=== PATIENT | female | born 1980 | race African-American/Black ===

== ENCOUNTER 2017-07-11 05:13 | Day surgery (SDC) | payer BC ==
[2017-07-08 15:17] VITALS: BMI 24.8
[~2017-07-11 05:13] MED LIST: LIDOCAINE HCL 1%, 10 MG/ML (20ML VIAL) INF ONE
[2017-07-11] MEDS ORDERED: ACETAMINOPHEN INJECTION 100 ML IVPB ONE (07:25)
[2017-07-11] MEDS ORDERED: ceFAZolin SODIUM 1 GM VIAL ONE (07:30)
[2017-07-11] MEDS ORDERED: DEXAMETHASONE SOD PHOSPHATE 4 MG/1 ML VIAL ONE (07:30)
[2017-07-11] MEDS ORDERED: PHENYLEPHRINE HCL 10 MG/1 ML SINGLE DOSE VIAL ONE (07:30)
[2017-07-11] MEDS ORDERED: PROPOFOL 20 ML ONE ×2 (07:31)
[2017-07-11] MEDS ORDERED: SUCCINYLCHOLINE CHLORIDE 200 MG/10 ML VIAL ONE (07:31)
[2017-07-11] MEDS ORDERED: ROCURONIUM BROMIDE 50 MG/5 ML VIAL ONE (07:31)
[2017-07-11] MEDS ORDERED: ePHEDrine SULFATE 50 MG/1 ML AMPULE ONE (07:31)
[2017-07-11] MEDS ORDERED: MIDAZOLAM HCL 2 MG/2 ML SINGLE DOSE VIAL ONE (07:31)
[2017-07-11] MEDS ORDERED: LIDOCAINE HCL/PF 2% SDV 5ML VIAL ONE (07:33)
[2017-07-11] MEDS ORDERED: DESFLURANE GAS 240 ML BOTTLE IH ONE (07:58)
[2017-07-11] MEDS ORDERED: ACETAMINOPHEN 325 MG TABLET (FP) PO PRN (08:11)
[2017-07-11] MEDS ORDERED: IBUPROFEN 800 MG/8 ML IJ IVPB PRN (08:11)
[2017-07-11] MEDS ORDERED: IBUPROFEN 600 MG TABLET (FP) PO PRN (08:11)
--- NOTE | 2017-07-11 08:14 | HP ---
Admitting History and Physical - Admission History of Present Illness: 36 yo for permanent sterilization procedure She rejects all forms of non-permanent contraception Limitations to Obtaining History: No Limitations - Past Medical History Cardiovascular: No: HTN Gastrointestinal: No: GERD ...LMP: 06/24/17 ...: No ...: 6 ...Para: 4 Heme/Onc: No: Anemia Endocrine: Yes: Hyperthyroidism (s/p ablation) - Past Surgical History Additional Past Surgical History: D&C - Smoking History Smoking history: Never smoked Have you smoked in the past 12 months: No - Alcohol/Substance Use Hx Alcohol Use: No History of Substance Use: reports: None - Social History ADL: Independent History of Recent Travel: No Home Medications - Allergies Allergies/Adverse Reactions: Allergies Allergy/AdvReac Type Severity Reaction Status Date / Time No Known Allergies Allergy Verified 07/11/17 06:42 - Home Medications Home Medications: Ambulatory Orders Multivitamins [Tab-A-Vit -] 1 tab PO DAILY 07/08/17 Ibuprofen [Advil -] 200 mg PO PRN PRN 07/11/17 Family Disease History - Family Disease History Family History: Denies Review of Systems - Review of Systems Constitutional: reports: No Symptoms HENT: reports: No Symptoms Neck: reports: No Symptoms Cardiovascular: reports: No Symptoms Respiratory: reports: No Symptoms Gastrointestinal: reports: No Symptoms Genitourinary: reports: No Symptoms Musculoskeletal: reports: No Symptoms Integumentary: reports: No Symptoms Neurological: reports: No Symptoms Endocrine: reports: No Symptoms Psychiatric: reports: No Symptoms Physical Examination Vital Signs: Vital Signs Temperature 98.7 F 07/11/17 06:40 Pulse Rate 62 07/11/17 06:40 Respiratory Rate 20 07/11/17 06:40 Blood Pressure 129/84 07/11/17 06:40 O2 Sat by Pulse Oximetry (%) 100 07/11/17 06:39 Constitutional: Yes: Well Nourished, No Distress, Calm Cardiovascular: Yes: Regular Rate and Rhythm Respiratory: Yes: Regular, CTA Bilaterally Gastrointestinal: Yes: Normal Bowel Sounds, Soft Edema: No Neurological: Yes: Alert, Oriented Psychiatric: Yes: Alert, Oriented Assessment/Plan 36 yo for laparoscopic sterilization procedure, bilateral salpingectomy Reviewed risks of procedure including infection, bleeding, damage to surrounding organs such as bowel and bladder and their associated repair. Discussed tubal ligation vs removal of tubes, patient desires complete removal for risk reduction of cancer. She expressed understanding. 1. 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 SCDs for DVT prophylaxis 3. Will proceed to OR
[2017-07-11] MEDS ORDERED: LACTATED RINGERS SOLUTION 1,000 ML IV SCH ×2 (08:15→10:45)
[2017-07-11] MEDS ORDERED: ceFAZolin SODIUM 1 GM VIAL IVPB ONE (09:01)
[2017-07-11] MEDS ORDERED: GLYCOPYRROLATE 0.2 MG/1 ML VIAL ONE (09:29)
[2017-07-11] MEDS ORDERED: NEOSTIGMINE METHYLSULFATE 0.5 MG/ML - 10 ML MDV ONE (09:29)
[2017-07-11] MEDS ORDERED: LIDOCAINE HCL 1%, 10 MG/ML (20ML VIAL) INF ONE ×2 (09:42)
--- NOTE | 2017-07-11 09:47 | OP ---
Operative Note - Note: Operative Date: 07/11/17 Pre-Operative Diagnosis: sterilization Operation: laparoscopic left salpingectomy Findings: normal appearing ovaries bilaterally, normal uterus, absent right fallopian tube Post-Operative Diagnosis: Same as Pre-op Surgeon: Nishi Levine Utility Driver: Blu Bradley Anesthesiologist/PAGE MAKEUP SYSTEM OPERATOR: Kehinde Campbell Anesthesia: General Specimens Removed: left fallopian tube Estimated Blood Loss (mls): 2 Drains, Volume Out (mls): 400 (urine ) Fluid Volume Replaced (mls): 1,000 Operative Report Dictated: Yes
--- NOTE | 2017-07-11 10:21 | OP ---
DATE OF OPERATION: 07/11/2017 ATTENDING PHYSICIAN: Nishi Levine MD PREOPERATIVE DIAGNOSIS: Desires permanent sterilization and removal of fallopian tube. POSTOPERATIVE DIAGNOSIS: Desires permanent sterilization and removal of fallopian tube. PROCEDURE PERFORMED: Laparoscopic left salpingectomy. METEOROLOGY FACULTY MEMBER: Blu Bradley MD ANESTHESIA: General anesthesia by Kehinde Campbell MD INDICATIONS: The patient is a 36-year-old 6 para 4 desiring permanent sterilization and removal of her left fallopian tube. She was counseled about risks, benefits and alternatives as well as complications of the procedure, including infection, bleeding, damage to surrounding organs such as bowel, bladder and uterus. She expressed understanding. PROCEDURE IN DETAIL: She was brought to the operating room. When anesthesia was found to be adequate the patient was prepped and draped in the usual sterile fashion. She was placed in the dorsal lithotomy position using Roberta stirrups. A weighted speculum was placed into the patient's vagina and anterior lip of the cervix was grasped using a an Allis clamp. The HUMI uterine manipulator was placed in the uterus. A Vogt catheter was placed in the patient bladder. Clear fluid was noted. Attention was brought to the patient's abdomen. A 5-mm incision was made in the umbilicus and a Veress needle was used to confirm intraabdominal placement using the water drop test. The abdomen was insufflated to an operating pressure of 16 mmHg of carbon dioxide. The 5-mm trocar was placed under direct visualization. Examination of the abdominal cavity revealed an absent right fallopian tube. A left lower quadrant and right lower quadrant 5-mm trocar was placed under direct visualization. The left fallopian tube was identified and followed to its fimbriated end. It was ligated easily using a Harmonic scalpel. Good hemostasis was noted. It was removed from the abdominal cavity and sent to Pathology. Examination of the abdominal cavity revealed no ovarian cyst. Good hemostasis was noted. All instruments were removed from the patient's abdomen. The pneumoperitoneum was released. The trocars were removed under direct visualization. Incisions were closed using 3-0 Vicryl and sealed with Dermabond. The patient was awoken from anesthesia and brought to the recovery room in stable condition. Rajan [id number] MTDD
[2017-07-11] MEDS ORDERED: oxyCODONE HCL 5 MG TABLET PO PRN (10:32)
[2017-07-11] MEDS ORDERED: PROMETHAZINE HCL 25 MG/1 ML VIAL IVPUSH PRN (10:32)
[2017-07-11] MEDS ORDERED: ONDANSETRON 4 MG/2 ML VIAL IVPUSH PRN (10:32)
[2017-07-11 13:01] VITALS: TEMP 98.3
[2017-07-11 14:39] VITALS: BP 122/88; PULSE 88
--- NOTE | 2017-07-14 15:29 | PATH ---
Surgical Pathology Report Patient Name: CARLIN [facility]ORELAND [facility]. Rec. #: [id number] /Age/Gender: 1980 (Age: 36) / F Account: [id number] Location: [facility] Taken: 07/11/2017 Received: 07/11/2017 Reported: 07/14/2017 Physicians: Nishi Levine Specimen(s) Received LEFT FALLOPIAN TUBE Clinical History Sterilization Final Diagnosis FALLOPIAN TUBE, LEFT, SALPINGECTOMY: FULL LUMINAL PORTION OF UNREMARKABLE FALLOPIAN TUBE. Electronically Signed Amber Boucher M.D. Gross Description Received in formalin labeled "left fallopian tube," is a 4.5 cm in length fimbriated fallopian tube. The outer surface is serna-pink and smooth. Sectioning reveals an unremarkable lumen. Kitchen Food Server sections are submitted in 2 cassettes as follows: 1-fimbria; 2-cross sections of fallopian tube. /07/11/2017 saudi/07/11/2017
== END 2017-07-11 14:35 | disposition home or self-care (01) ==
LOC: JASU-SURG 05:13
PROVIDERS: ATTEND Obstetrics & Gynecology
PROC: 0UB64ZZ Excision of Left Fallopian Tube, Percutaneous Endoscopic Approach (ICD-10-PCS; principal; 2017-07-11 08:00)
DX: Z30.2 Encounter for sterilization (principal)
CPT/HCPCS: 88302-TC; 94760